=== PATIENT | female | born 1955 | race Caucasian/White ===

== ENCOUNTER 2018-09-10 13:42 | Outpatient (CLI) | payer BC ==
--- NOTE | 2018-09-10 16:21 | MMO ---
BILATERAL SCREENING MAMMOGRAM: Date: 09/10/18 INDICATION: Annual exam. COMPARISON: Prior exam dated 02/18/14. FINDINGS: Interpretation of this exam was assisted with computer-aided detection. There are scattered fibroglandular elements bilaterally. There are benign-appearing calcifications bilaterally. No new suspicious mass, cluster of microcalcifications, or area of architectural distortion is eviden t. IMPRESSION: BIRADS 2: Benign Finding(s) Recommend routine annual mammographic screening. POS: [facility]
== END 2018-09-10 13:43 | disposition home or self-care (01) ==
LOC: SCSMAMMO 13:42
PROVIDERS: ATTEND Family Medicine
DX: Z12.31 Encounter for screening mammogram for malignant neoplasm of breast (principal)
CPT/HCPCS: 77067

== ENCOUNTER 2020-08-14 10:53 | Outpatient (CLI) | payer MEDICARE, BC ==
--- NOTE | 2020-08-14 13:07 | CT ---
CT ABDOMEN AND PELVIS WITH AND WITHOUT IV CONTRAST: Postcontrast images obtained in a portal venous phase and delayed venous phase. INDICATION: History of malignant neoplasm of the bladder. COMPARISON: Comparison is made to CT abdomen and pelvis with and without contrast 11/21/2015. FINDINGS: Lung bases clear. Review of the urinary tract on the noncontrast images show no evidence of urinary tract calculus. Th ere is no evidence of hydronephrosis. On the postcontrast images, both kidneys show symmetric enhancement. No renal mass or cystic lesion identified. On delayed sequence, contrast secretion into the collecting structures. Collecting stru ctures appear unremarkable. On the delayed sequence, the urinary bladder is mildly distended. There is mild urinary bladder wall thickening which appears similar to the prior exam. No focal urinary bladder wall mass lesion ident ified. The liver again shows mild intrahepatic biliary duct dilatation which is stable. The extrahepatic bi liary duct is mildly prominent. The patient is post cholecystectomy. Findings are stable from prior study. The spleen, pancreas, and adrenal glands are unremarkable. Abdominal aorta normal caliber. The small and large bowel loops are unremarkable. Images through the pelvis show a mildly prominent uterus and endometrium for age. This appears is st able, however, when compared to the prior study. There is a calcification seen in the right myometri um which is stable. Osseous structures show loss of disk space and degenerative changes at L5-S1. P osterior disk bulge and osteophytes are noted at this level. There is an osteophyte projecting to th e left at this level which is similar to the prior exam and appears to displace the traversing left S 1 nerve root. There is moderately severe central canal stenosis at L4-5 which appears stable. Centr al canal stenosis also seen at L3-4 which appears stable. IMPRESSION: Stable CT findings as detailed above. No acute interval change. POS: AH
[2020-08-14 14:56] LABS: Anion Gap 13 mmol/L (10-20); BUN (Urea Nitrogen) 18 mg/dL (9.8-20.1); Calc. Creatinine Clearance 0 mL/min (70-130); Calcium 9.5 mg/dL (7.8-10.44); Carbon Dioxide 28 mmol/L (23-31); Chloride 104 mmol/L (98-107); Estimated GFR-MDRD 64; Glucose 102 mg/dL (80-115); Potassium 4.7 mmol/L (3.5-5.1); Sodium 140 mmol/L (136-145)
[2020-08-14 15:05] LABS: Bilirubin Negative (Negative); Blood, Urine Negative (Negative); Clarity Clear (Clear); Glucose, Urine (Dipstick) Normal (Negative); Ketone, Urine Negative (Negative); Leukocyte Negative Leu/uL (Negative); Nitrite Negative (Negative); Protein, Urine (Dipstick) Negative (Neg-Trace); RBC/HPF 0-3 HPF (0-3); Specific Gravity, Urine 1.016 (1.002-1.036); Squamous Epithelial 0-3 HPF (0-3); Urobilinogen Normal mg/dL (Less than 2); WBC/HPF 0-3 HPF (0-3); pH, Urine 6.5 (5.0-9.0)
[2020-08-14 15:06] LABS: Bacteria/HPF Rare-Few HPF (None Seen)
== END 2020-08-14 10:54 | disposition home or self-care (01) ==
LOC: SCSCT 10:53
PROVIDERS: ATTEND Urology
DX: C67.2 Malignant neoplasm of lateral wall of bladder (principal)
CPT/HCPCS: 36415; 74178; 80048; 81001; 87086

== ENCOUNTER 2021-04-12 14:15 | Outpatient (CLI) | payer MEDICARE, BC | END 2021-04-12 14:16 | disposition home or self-care (01) | LOC: BICCT 14:15 | PROVIDERS: ATTEND Family Medicine | DX: Z12.2 Encounter for screening for malignant neoplasm of respiratory organs (principal); Z87.891 Personal history of nicotine dependence | CPT/HCPCS: 71271 ==